=== PATIENT | female | born 1970 | race African-American/Black ===

== ENCOUNTER 2016-11-04 18:13 | Emergency (ER) | payer SELFPAY ==
[~2016-11-04] VITALS: Ht 165.1 cm; Wt 66.0 kg
[2016-11-04] MEDS ORDERED: FAMOTIDINE 20MG/2ML VIAL IV STA (18:56)
[2016-11-04] MEDS ORDERED: KETOROLAC 30MG/ML VIAL IV STA (18:56)
[2016-11-04] MEDS ORDERED: ONDANSETRON HCL 4MG/2ML VIAL IV STA ×2 (18:56→22:01)
[2016-11-04] MEDS ORDERED: SODIUM CHLORIDE 0.9% 1,000 ML IV ONE ×2 (18:56→22:01)
[2016-11-04 19:30] LABS: BASOPHILS % 0.4 % (0.0-2.0); EOSINOPHILS % 0.5 % (0.0-5.0); HEMATOCRIT. 39.4 % (36.0-48.0); HEMOGLOBIN. 12.7 g/dL (12.0-16.0); LYMPHOCYTES % 9.3 % (20.0-50.0); MEAN CORPUSCULAR VOLUME 86.7 fL (81.0-99.0); MEAN PLATELET VOLUME 10.3 fl (7.4-10.4); MONOCYTES % 3.7 % (2.0-8.0); NEUTROPHILS % 86.1 % (40.0-76.0); PLATELET 263 x1000/uL (130-400); RED BLOOD CELL COUNT 4.54 mill/uL (4.2-5.4); RED CELL DISTRIBUTION WIDTH 14.3 % (11.6-14.6)
[2016-11-04 19:32] LABS: CHLORIDE 108 mEq/L (98-107)
[2016-11-04 19:42] LABS: CARBON DIOXIDE 21 mEq/L (21-32)
[2016-11-04] MEDS ORDERED: ONDANSETRON HCL 4MG/2ML VIAL IV PRN (20:00)
[2016-11-04 20:26] LABS: HCG SCREEN NEGATIVE
[2016-11-05 00:50] VITALS: BP 96/47
== END 2016-11-05 01:59 | disposition home or self-care (01) ==
LOC: ER 18:13
DX: R10.13 Epigastric pain (principal); R11.2 Nausea with vomiting, unspecified; R50.9 Fever, unspecified; R00.2 Palpitations
CPT/HCPCS: 36415; 80053; 83690; 84703; 85025; 96361; 96374; 96375; 96376; 99284; J1885; J2405; J3490; J7030; Z7610